=== PATIENT | female | born 1970 | race Caucasian/White ===

== ENCOUNTER 2017-10-20 11:08 | Emergency (ER) | payer MEDICAID, BC | END 2017-10-20 12:35 | disposition home or self-care (01) | LOC: FTE 11:08 | DX: M77.9 Enthesopathy, unspecified (principal) | CPT/HCPCS: 29125; 99283-25 ==

== ENCOUNTER 2017-11-01 12:17 | Emergency (ER) | payer BC, MEDICAID | END 2017-11-01 15:19 | disposition home or self-care (01) | LOC: E/R 15:19 | DX: R05 Cough (principal) | CPT/HCPCS: 99284 ==

== ENCOUNTER 2018-01-25 13:56 | Emergency (ER) | payer BC ==
[2018-01-25] MEDS: IBUPROFEN 800 MG TAB PO (14:52)
[2018-01-25] MEDS: ACETAMINOPHEN 500 MG TAB PO (14:56)
== END 2018-01-25 15:19 | disposition home or self-care (01) ==
LOC: FTE 13:56
DX: J06.9 Acute upper respiratory infection, unspecified (principal)
CPT/HCPCS: 99283; Z7502